=== PATIENT | male | born 1975 | race Caucasian/White ===

== ENCOUNTER 2016-11-05 12:15 | Observation (INO) ==
[2016-11-05 13:46] LABS: Basophils # 0.1 10*3/uL (0.0-0.2); Basophils % 0.5 % (0.0-0.8); Eosinophils # 0.2 10*3/uL (0.0-0.87); Eosinophils % 1.6 % (0.00-10.9); Hematocrit 51.1 VOL% (42.0-52.0); Hemoglobin 17.9 GM/DL (14.0-18.0); Immature Granulocytes % 0.4 %; Immature Granulocytes Absolute 0.04 #; Lymphocytes # 1.4 10*3/uL (1.4-4.0); Lymphocytes % 12.4 % (21.2-54.2); Mean Corpuscular Hemoglobin 31 PG (27-34); Mean Corpuscular Volume 88.4 FL (87-102); Mean Platelet Volume 10.2 FL (9.6-12.0); Monocytes % 9.4 % (1.7-12.7); Neutrophils # 8.3 10*3/uL (1.4-7.4); Neutrophils % 75.7 % (38.7-73.9); Platelet Count 317 T/CUMM (130-400); Red Blood Count 5.78 MC/CUMM (3.8-5.5)
[2016-11-05 14:10] LABS: Bilirubin,Total 0.7 MG/DL (0.2-1.0); Calcium 9.6 MG/DL (8.5-10.1); Osmolality,Calculated 276.5 MOS/KG (273-304); Potassium 4.1 MMOL/L (3.5-5.1); Total Protein 7.4 G/DL (6.4-8.3)
[2016-11-05] MEDS ORDERED: KETOROLAC 30 MG/1 ML VIAL ONE ×2 (14:40→14:50)
[2016-11-05] MEDS ORDERED: KETOROLAC 30 MG/1 ML VIAL IV STA (14:50)
--- NOTE | 2016-11-05 15:03 | CT Report ---
CT abdomen pelvis w con Indication: Generalized abdominal pain. Comparison: None. Technique: CT of the abdomen and pelvis was performed following administration of intravenous contrast. The CT examination was performed using one or more of the following dose reduction techniques: Automatic exposure control, adjustment of the mA and kV according to patient size, or iterative reconstruction techniques. Findings: A short segment of sigmoid colon demonstrates wall thickening and the presence of multiple diverticula as well as periserosal fat stranding and haziness. These findings are compatible with acute diverticulitis. A few of the lymph nodes within the mesial colon are borderline in size to minimally enlarged likely reactive. There is no evidence of perforation or abscess formation. Subcentimeter focus of low attenuation within the lateral cortex of the right kidney is compatible with small cyst or hemangioma. The size makes complete evaluation somewhat difficult and ultrasound would be useful for confirmation as well as exclusion of hypoattenuating solid mass. Otherwise, the imaged structures of the lower chest, liver, gallbladder, spleen, pancreas, adrenal glands, kidneys, aorta, inferior vena cava, stomach, bowel, and intrapelvic contents as well as bony structures soft tissues and musculature the body wall demonstrate no evidence of significant pathology. Impression: 1. Acute uncomplicated sigmoid diverticulitis is present as detailed. Follow-up is recommended to ensure resolution given the short segment of involvement to exclude inflammatory neoplasm. 11/05/2016 2:57 PM PROCEDURE INTERPRETED AT [facility] DEPARTMENT OF RADIOLOGY Final Report Signed by: Dr. Zay Mckinney
[2016-11-05] MEDS ORDERED: ONDANSETRON 4 MG/2 ML VIAL ONE (15:09)
[2016-11-05] MEDS ORDERED: MORPHINE 2 MG/1 ML SYRINGE ONE (15:10)
[2016-11-05] MEDS ORDERED: ACETAMINOPHEN 325 MG TABLET PO PRN (15:19)
--- NOTE | 2016-11-05 15:19 | Emergency Department Note ---
Tim Liriano Manpreet, am scribing for, and in the presence of, Nico Saenz MD 13:26. Dany Liriano Doug C, MD, personally performed the services described in this documentation, ascribed by Francois Dumont in my presence, and it is both accurate and complete 519 . Arrival - Arrival Chief Complaint: Abdominal / Flank Pain Stated Complaint: direuticulitis ED Nursing Triage Note: Pt c/o lower abd pain since . with some nausea. Denies vomiting or diarrhea. Mode of Arrival: Ambulatory Limitations: No Limitations Source: Patient - History of Present Illness HPI Narrative: Patient is a 41-year-old white male presents emergency room complaining increasing lower abdominal pain for the last 4-5 days. By states she has had some nausea with it but has not had any vomiting or diarrhea. By states she has felt hot but was not measured his temperature and he denies any shaking chills. Has not seen any blood in his stool or melena. He has had similar pain in the past when he had diverticulitis. Patient had some antibiotics that he started taking but that did not seem to help him that much. He denies any urinary symptoms and has not seen blood in his urine Onset (ago): day(s) Consistency: constant Severity: moderate Severity scale (1-10): 4 Allergies/Adverse Reactions: Allergies Allergy/AdvReac Type Severity Reaction Status Date / Time No Known Allergies Allergy Verified 07/06/15 11:46 Home Medications: Home Medications Medication Instructions Recorded Confirmed Type No Known Home Medications [No 11/05/16 11/05/16 History Known Home Medications] Review of System - Review of System 12 point system: reviewed and no additional remarkable complaints except as stated - Review of System Constitutional: Absent: chills, diaphoresis, fever Respiratory: Absent: cough, respiratory distress Cardiovascular: Absent: chest pain Gastrointestinal: Present: abdominal pain, nausea. Absent: vomiting, diarrhea, hematemesis, melena, hematochezia Genitourinary male: Absent: dysuria, frequency Musculoskeletal: Absent: back pain, neck pain Skin: Absent: rash, lesions Neurological: Absent: headache, weakness, numbness Psychiatric: Absent: anxiety, depression Hematological/Lymphatic: Absent: easy bleeding, easy bruising Medical,Surgical,& Family Hx - Medical History Gastrointestinal: History of: Diverticulitis/ Diverticulosis Musculoskeletal: No history of: Amputation - Surgical History Thoracic Surgeries: Patient denies;: Kidney (Renal Surgery), Lithotripsy, Nephrectomy, Organ Transplant Neurologic Surgeries: Patient denies: Neurologic Surgery HEENT Surgeries: Patient denies: Eye Surgery, Thyroid Surgery, Tonsilectomy & Adenoidectomy Abdominal Surgeries: Patient denies: Abdominal Surgery, Appendectomy, Cholecystectomy, Colonoscopy , Gastric Bypass Surgery, EGD, Hernia Repair Reproductive Surgeries: Patient denies;: Cystoscopy, Genitourinary Surgery, Prostate Surgery Orthopedic Surgeries: Patient denies;: Implanted Devices, Orthopedic Surgery, Spinal Surgery, Total Hip Replacement, Total Knee Replacement - Family History Family History: Reports;: Family Diabetes (FATHER), Family Heart Disease ( father underwent left heart catheterization and stenting at age 60.) Denies;: Family Cancer, Family Hypertension, Family Psychiatric Problems, Family Stroke - Social History Smoking Status: Former smoker Exam Vital Signs: Vital Signs Temperature 98.3 F 11/05/16 13:55 Pulse Rate 78 11/05/16 13:55 Respiratory Rate 18 11/05/16 13:55 Blood Pressure 155/104 11/05/16 13:55 O2 Sat by Pulse Oximetry 97 11/05/16 12:16 - General General appearance: alert, in no apparent distress - Head Head exam: Present: atraumatic, normocephalic, normal inspection - Eye Eye exam: Present: normal appearance, PERRL, EOMI - ENT ENT exam: Present: normal exam, normal oropharynx, mucous membranes moist - Neck Neck exam: Present: normal inspection, full ROM, trachea midline. Absent: tenderness - Chest Chest inspection: Present: normal inspection, symmetric chest wall rise. Absent : tenderness - Respiratory Respiratory exam: Present: normal lung sounds bilaterally. Absent: accessory muscle use, respiratory distress - Cardiovascular Cardiovascular exam: Present: regular rate, normal rhythm, normal heart sounds. Absent: murmur, rubs, gallop - Abdominal Exam Abdominal exam: Present: tenderness (Lower Abd tenderness), normal bowel sounds. Absent: soft, distention - Extremities Exam Extremities exam: Present: normal inspection, full ROM. Absent: tenderness - Back Exam Back exam: Present: normal inspection, full ROM. Absent: tenderness - Neurological Exam Neurological exam: Present: alert, oriented X3, CN II-XII intact, reflexes normal - Psychiatric Psychiatric exam: Present: normal affect, normal mood - Skin Skin exam: Present: warm, dry, intact, normal color. Absent: pallor Course Course Narrative: Patient's clinical presentation, laboratory and radiograph findings were discussed with Dr. Jerry Virk and patient will be admitted for further evaluation and treatment. Results - Labs CBC & BMP: 11/05/16 13:37 11/05/16 13:37 Lab Results: I have reviewed the patients labs Labs: Laboratory Tests 11/05/16 13:37 WBC 11.0 RBC 5.78 H Hgb 17.9 Hct 51.1 MCV 88.4 Neut % (Auto) 75.7 H Lymph % (Auto) 12.4 L Neut # (Auto) 8.3 H [place] # (Auto) 1.0 H Laboratory Tests 11/05/16 13:37 Sodium 139 Potassium 4.1 Chloride 104 Carbon Dioxide 28 Anion Gap 11.1 Creatinine 1.50 H - Diagnostic Findings Procedure: CT Abdomen and Pelvis: report reviewed by me (CT w/ IV Contrast: 1. Acute uncomplicated sigmoid diverticulitis is present as detalied. Follow-up is recommended to ensure resolution given the short segment of involvement to exclude inflammatory neoplasm.) Disposition Clinical Impression: Acute diverticulitis Case discussed with: patient, patient's family Disposition: Still a Patient Condition: Stable Time of Disposition: 15:19
[2016-11-05] MEDS: MORPHINE 2 MG/1 ML SYRINGE IV PRN ×2 (16:00→20:56)
[2016-11-05] MEDS: ONDANSETRON 4 MG/2 ML VIAL IV PRN (16:01)
[2016-11-05 16:30] LABS: Lactic Acid 0.9 MMOL/L (0.4-2.0)
[2016-11-05] MEDS: SODIUM CHLORIDE 0.9% 1,000 ML IV SCH (16:40)
[2016-11-05] MEDS: ENOXAPARIN 40 MG/0.4 ML SYRINGE SUBCUT SCH (16:45)
[2016-11-05] MEDS: LEVOFLOXACIN INJ 750 MG in PREMIX 1 EACH IV SCH (17:04)
[2016-11-05] MEDS: metroNIDAZOLE INJ 750 MG in PREMIX 1 EACH IV SCH (18:37)
[2016-11-05] MEDS: DOCUSATE SODIUM 100 MG CAPSULE PO SCH (20:56)
[2016-11-06] MEDS: metroNIDAZOLE INJ 750 MG in PREMIX 1 EACH IV SCH ×3 (02:56→19:47)
[2016-11-06] MEDS: SODIUM CHLORIDE 0.9% 1,000 ML IV SCH ×3 (02:56→23:33)
[2016-11-06 04:33] LABS: Basophils % 0.5 % (0.0-0.8); Eosinophils # 0.2 10*3/uL (0.0-0.87); Eosinophils % 2.3 % (0.00-10.9); Hematocrit 43.2 VOL% (42.0-52.0); Hemoglobin 14.8 GM/DL (14.0-18.0); Immature Granulocytes % 0.3 %; Immature Granulocytes Absolute 0.02 #; Lymphocytes # 1.3 10*3/uL (1.4-4.0); Lymphocytes % 19.4 % (21.2-54.2); Mean Corpuscular HGB Conc 34.3 GM/DL (32-36); Mean Corpuscular Hemoglobin 31 PG (27-34); Mean Corpuscular Volume 89.4 FL (87-102); Mean Platelet Volume 10.4 FL (9.6-12.0); Monocytes % 14.3 % (1.7-12.7); Neutrophils # 4.2 10*3/uL (1.4-7.4); Neutrophils % 63.2 % (38.7-73.9); Platelet Count 269 T/CUMM (130-400); Red Blood Count 4.83 MC/CUMM (3.8-5.5); Red Cell Distribution Width 12.9 % (9.3-17.3); White Blood Count 6.7 T/CUMM (4-12)
[2016-11-06] MEDS: MORPHINE 2 MG/1 ML SYRINGE IV PRN ×3 (08:24→19:53)
[2016-11-06] MEDS: ONDANSETRON 4 MG/2 ML VIAL IV PRN (08:25)
[2016-11-06] MEDS: PANTOPRAZOLE 40 MG TABLET PO SCH (08:25)
[2016-11-06] MEDS: DOCUSATE SODIUM 100 MG CAPSULE PO SCH ×2 (08:25→20:45)
--- NOTE | 2016-11-06 09:12 | Gastrointestinal Consult Note ---
Assessment and Plan - Time spent with patient Time spent with patient: Greater than 30 minutes (1) Acute diverticulitis Status: Acute Current Visit: Yes (2) Other specified counseling Status: Acute Current Visit: Yes History of Present Illness History of present illness: Mr. Harper is a 41 year old male Home Medications Medication Instructions Recorded Confirmed Type No Known Home Medications [No 11/05/16 11/05/16 History Known Home Medications] Allergies Allergy/AdvReac Type Severity Reaction Status Date / Time No Known Allergies Allergy Verified 11/05/16 16:30 Medical,Surgical,& Family Hx - Medical History Cardio: History of: Hypertension Gastrointestinal: History of: Diverticulitis/ Diverticulosis, GERD Musculoskeletal: No history of: Amputation - Surgical History Cardiac Surgeries: Sugical HX of: Cardiac Catheterization Thoracic Surgeries: Patient denies;: Kidney (Renal Surgery), Lithotripsy, Nephrectomy, Organ Transplant Neurologic Surgeries: Patient denies: Neurologic Surgery HEENT Surgeries: Patient denies: Eye Surgery, Thyroid Surgery, Tonsilectomy & Adenoidectomy Abdominal Surgeries: Patient denies: Abdominal Surgery, Appendectomy, Cholecystectomy, Colonoscopy , Gastric Bypass Surgery, EGD, Hernia Repair Reproductive Surgeries: Patient denies;: Cystoscopy, Genitourinary Surgery, Prostate Surgery Orthopedic Surgeries: Patient denies;: Implanted Devices, Orthopedic Surgery, Spinal Surgery, Total Hip Replacement, Total Knee Replacement - Family History Family History: Reports;: Family Diabetes (FATHER), Family Heart Disease ( father underwent left heart catheterization and stenting at age 60.) Denies;: Family Cancer, Family Hypertension, Family Psychiatric Problems, Family Stroke - Social History Smoking Status: Former smoker Frequency of Alcohol Use: None Type of Drug Use: None Exam - Constitutional Vitals: Period Temp Pulse Resp BP Sys/Zavala Pulse Ox Last 24 Hr 97.9 F-98.7 F 75-85 18-20 107-149/61-89 94-97 Results - Labs CBC & BMP: 11/06/16 04:01 11/05/16 13:37 Note Addendum: PLEASE NOTE -- automatic citation of patient information is unavoidable in this electronic note. I have made a reasonable effort to review the information cited , but it is not a part of my evaluation, impression, or recommendation unless specifically discussed in the dictated text that follows. As well, voice recognition software was used in the creation of this clinical note. Reasonable effort was made to identify and correct gross errors. Despite proofreading, errors in well puller head may be present, including nonsense verbiage at times. If you encounter such an error, please contact me at for discussion and correction. -- Kamari Chief complaint: abdominal pain History of present illness: This is a new patient, a 41-year-old male seen by consultation for evaluation of abdominal pain. The patient is admitted to the primary care service under the care of Dr. Nico Saenz with a primary diagnosis of diverticulitis. The patient was admitted last evening through the emergency department with primary complaint of abdominal pain. Evaluation at that time revealed radiologic evidence of sigmoid diverticulitis without complication. The patient was started on levofloxacin and Flagyl as well as crystalloid resuscitation and now reports feeling some better continue with abdominal discomfort. He reports this is the fourth time in four years that he has had too diverticulitis. He has not had colonoscopy in the past. Patient denies night sweats, rigors, headache, dizziness, neck pain, visual changes, redness of the eyes, dysphagia, odynophagia, difficulty chewing, chest pain, shortness of breath, weight loss, nausea, vomiting, regurgitation, hematemesis, diarrhea, hematochezia, melena, proctalgia, constipation, dysuria, skin changes, temperature regulation issues, flushing, easy bleeding/bruising, musculoskeletal pain, mental status change, numbness/weakness in the extremities , yellowing of the eyes/skin, cutaneous eruptions, allergies to food or drug, family history of gastrointestinal cancer and colon polyps, and other complaints in general. Review of systems: 12 point review of systems was negative except as documented above. Outpatient medications: none Inpatient medications: Tylenol, Colace, Lovenox, Levaquin, Flagyl, morphine, Zofran, Protonix, sodium chloride infusion Past Medical History: diverticulosis/diverticulitis Social history: former tobacco. Negative alcohol Family history: no gastrointestinal cancers Physical examination: Vital Signs: Current vital signs reviewed and documented above. General Appearance: well-appearing. Not acutely ill. Head: Normocephalic. Neck: Palpation of the neck revealed no abnormalities. Eyes: No scleral icterus. No scleral injection. No conjunctival pallor. Oral Cavity: Odor of breath was normal. No drooling was observed. Lips showed no abnormalities. Floor of the mouth showed no abnormalities. Pharynx: Oropharynx was normal. Lungs: Respiration rhythm and depth was normal. Cardiovascular: Heart rate and rhythm were normal. No murmurs were appreciated. Abdomen: abdomen was not distended. Abdominal palpation revealed no tenderness and no hepatosplenomegaly. Ascites was not discovered. Abdominal auscultation revealed positive bowel sounds. Musculoskeletal System: Musculoskeletal system was grossly normal. Neurological: level of consciousness was normal. Speech was normal. Skin: General appearance was normal. Color and pigmentation were normal. No skin lesions. Laboratory: white blood count 6.7, hemoglobin 14.8, hematocrit 43.2, platelets 269 Radiology: CT of the abdomen and pelvis, November 05, 2016 -- acute uncomplicated sigmoid diverticulitis; mesenteric lymphadenopathy; incidental, non- gastrointestinal, findings Impressions: 1. Sigmoid diverticulitis -- the patient has CT evidence of same. CT is reasonably sensitive and specific in this setting. The patient reports some improvement since admission. I agree with the current antibiotic selection. I would recommend a clear liquid diet until a clear trend of improvement is established. I recommend conversion to oral antibiotics once severe abdominal pain is improved. Patient can be discharged once homeostasis is achieved, pain is relieved, and the patient is tolerating a diet. He should have colonoscopy during convalescence to ensure no evidence of alternative pathology involving the sigmoid colon. You should also consider a surgical consultation for prophylactic segmental colectomy to prevent future episodes of diverticulitis. 2. Other specified counseling -- The patient was seen for greater than 30 minutes. The patient was counseled for greater than 50% of this time regarding differential diagnosis, likely diagnosis, diagnostic and therapeutic alternatives, risks/benefits/alternatives of medications and procedures, and plan of care generally. The patient expressed understanding and wishes to proceed. Recommendations: -- continue current antibiotic -- continue crystalloid resuscitation -- continued analgesia as indicated -- discharge once homeostasis and pain relief is well-established -- follow-up in the outpatient gastroenterology clinic for diagnostic colonoscopy to ensure no alternative pathology involving the sigmoid colon -- surgical consultation, outpatient, for consideration of prophylactic segmental colectomy -- thank you for this consultation. Dr. barajas will assume G.I. care for this patient tomorrow.
--- NOTE | 2016-11-06 09:29 | Family Practice History&Phys ---
History of Present Illness Chief complaint: Diverticulitis History of present illness: Mr. Harper is a 41 year old male Came in the hospital with a left lower quadrant pain. He was seen on an outpatient basis and basically failed outpatient therapy with antibiotics about 4 days ago. He is continued to have pain without vomiting or diarrhea. Has had diverticulitis before and feels this is what is. On denies any fever or chest pain shortness of breath leg swelling flank pain or other constitutional symptoms at this time. Patient is psychologically emotionally stable. We are currently giving him IV fluids as well as antibiotics and treating pain palliatively at present Home Medications Medication Instructions Recorded Confirmed Type No Known Home Medications [No 11/05/16 11/05/16 History Known Home Medications] Allergies Allergy/AdvReac Type Severity Reaction Status Date / Time No Known Allergies Allergy Verified 11/05/16 16:30 12 point system: reviewed and no additional remarkable complaints except as stated (H&P) - Constitutional Constitutional: Absent: anorexia - EENT Eyes: Absent: blurry vision Nose, mouth and throat: Absent: dysphagia - Cardiovascular Cardiovascular: Absent: chest pain at rest, lightheadedness - Respiratory Respiratory: Absent: cough, wheezing - Gastrointestinal Gastrointestinal: Present: abdominal pain. Absent: hematochezia - Genitourinary Genitourinary: Absent: dysuria, flank pain - Musculoskeletal Musculoskeletal: Absent: back pain - Neurological Neurological: Absent: confusion - Psychiatric Psychiatric: Absent: depression Medical,Surgical,& Family Hx - Medical History Cardio: History of: Hypertension Gastrointestinal: History of: Diverticulitis/ Diverticulosis, GERD Musculoskeletal: No history of: Amputation - Surgical History Cardiac Surgeries: Sugical HX of: Cardiac Catheterization Thoracic Surgeries: Patient denies;: Kidney (Renal Surgery), Lithotripsy, Nephrectomy, Organ Transplant Neurologic Surgeries: Patient denies: Neurologic Surgery HEENT Surgeries: Patient denies: Eye Surgery, Thyroid Surgery, Tonsilectomy & Adenoidectomy Abdominal Surgeries: Patient denies: Abdominal Surgery, Appendectomy, Cholecystectomy, Colonoscopy , Gastric Bypass Surgery, EGD, Hernia Repair Reproductive Surgeries: Patient denies;: Cystoscopy, Genitourinary Surgery, Prostate Surgery Orthopedic Surgeries: Patient denies;: Implanted Devices, Orthopedic Surgery, Spinal Surgery, Total Hip Replacement, Total Knee Replacement - Family History Family History: Reports;: Family Diabetes (FATHER), Family Heart Disease ( father underwent left heart catheterization and stenting at age 60.) Denies;: Family Cancer, Family Hypertension, Family Psychiatric Problems, Family Stroke - Social History Smoking Status: Former smoker Frequency of Alcohol Use: None Type of Drug Use: None Exam - Constitutional Vitals: Period Temp Pulse Resp BP Sys/Zavala Pulse Ox Last 24 Hr 97.9 F-98.7 F 75-85 18-20 107-149/61-89 94-97 Exam: Generally well-developed male alert and oriented and answers all questions appropriately HEENT reveals equal reactive light extraocular movements are intact neck is supple trachea midline Cardiovascular rate is regular no gallop or rub or murmur Lungs clear Abdomen soft nondistended. There is tenderness in the left lower quadrant with palpation. Did not do a Hemoccult stool Extremities no clubbing cyanosis or edema Results - Labs CBC & BMP: 11/06/16 04:01 11/05/16 13:37
[2016-11-06] MEDS: ENOXAPARIN 40 MG/0.4 ML SYRINGE SUBCUT SCH (15:08)
[2016-11-06] MEDS: LEVOFLOXACIN INJ 750 MG in PREMIX 1 EACH IV SCH (17:40)
[2016-11-07] MEDS: metroNIDAZOLE INJ 750 MG in PREMIX 1 EACH IV SCH (03:19)
--- NOTE | 2016-11-07 07:33 | Family Practice Progress Note ---
Family Practice - PN: Subj Interval history: Patient states he still having left lower quadrant pain. He did have any fever chills last night and states he did not have any diarrhea. Patient failed outpatient therapy and is presently on IV Flagyl and Levaquin. Is very significant area of diverticulitis on his CT. Exam (Progress Note) - Constitutional Vitals: Period Temp Pulse Resp BP Sys/Zavala Pulse Ox Last 24 Hr 97.9 F-98.3 F 62-79 18-20 106-130/62-91 92-99 Exam: Objectively well-developed white male no acute distress. He still complained of left lower quadrant tenderness. Has not had any fever or chills and his white blood count is diminished this morning. Results - Labs CBC & BMP: 11/06/16 04:01 11/05/16 13:37 Lab Results: I have reviewed the past 24 hour labs Assessment and Plan (1) Acute diverticulitis Status: Acute Assessment and plan: 11/07/2016: Told patient he will need colonoscopy when he finally improves. Also suggested to him that he might as will see the surgeon particularly if he has another episode of diverticulitis. He is agreeable to this. Current Visit: Yes
[2016-11-07] MEDS: ONDANSETRON 4 MG/2 ML VIAL IV PRN ×2 (08:31→18:23)
[2016-11-07] MEDS: SODIUM CHLORIDE 0.9% 1,000 ML IV SCH ×2 (08:39→18:37)
[2016-11-07] MEDS: DOCUSATE SODIUM 100 MG CAPSULE PO SCH ×2 (09:50→21:19)
[2016-11-07] MEDS: ENOXAPARIN 40 MG/0.4 ML SYRINGE SUBCUT SCH (09:50)
[2016-11-07] MEDS: PANTOPRAZOLE 40 MG TABLET PO SCH (09:50)
[2016-11-07] MEDS: METRONIDAZOLE IV SCH ×2 (11:45→19:30)
--- NOTE | 2016-11-07 12:08 | Gastrointestinal Progress Note ---
Assessment and Plan (1) Acute diverticulitis Status: Acute Assessment and plan: 11/07-left lower quadrant pain improved, afebrile, without leukocytosis. Mild nausea without vomiting. No prior endoscopy in the past. Continue IV antibiotics at this time. Plan an addendum to followed by Dr. Navarrete Current Visit: Yes Gastroenterology - PN: Subj Interval history: CC: Diverticulitis Patient is seen awake and alert lying in bed. States he is feeling some better today. He states that his left lower quadrant pain is improved and is more of a soreness at this time. He did have some complaints of nausea this morning without vomiting but this is now resolved. He is afebrile and without leukocytosis. He is currently being treated with Levaquin and Flagyl IV. CT scan results noted for sigmoid diverticulitis. Patient states that this is his third hospitalization for diverticulitis however he has never underwent any endoscopy before. He states that his first episode was approximate 5-6 years ago. He states that he has had more episodes however they did not require hospitalization and was treated outpatient with p.o. antibiotics. Abdomen is soft, mild tenderness to left lower quadrant. Denies any diarrhea. ROS: Denies shortness of breath or chest pain Exam (Progress Note) - Constitutional Vitals: Period Temp Pulse Resp BP Sys/Zavala Pulse Ox Last 24 Hr 97.9 F-98.1 F 62-79 18-20 106-130/62-75 92-96 General appearance: normal weight, no acute distress - Head Head exam: Present: normal inspection, normocephalic - Eye Eye exam: Present: other (Lids and conjunctive are unremarkable). Absent: scleral icterus - ENT ENT exam: Present: normal exam, normal oropharynx - Neck Neck exam: Present: normal inspection - Respiratory Respiratory exam: Present: clear to auscultation bilaterally. Absent: rales, rhonchi, wheezes - Cardiovascular Cardiovascular exam: Present: regular rate and rhythm. Absent: diastolic murmur , JVD, systolic murmur - GI/Abdominal GI/Abdominal exam: Present: normal bowel sounds, tenderness, soft. Absent: ascites, distended, mass, organomegaly - Extremities Exam Extremities exam: Present: normal inspection, full ROM - Back Exam Back exam: Present: normal inspection - Neurological Exam Neurological exam: Present: alert, oriented X3 - Psychiatric Psychiatric exam: Present: normal affect, normal mood - Skin Skin exam: Present: normal color, warm, dry Results - Labs CBC & BMP: 11/06/16 04:01 11/05/16 13:37 Lab Results: I have reviewed the past 24 hour labs
--- NOTE | 2016-11-07 12:51 | General Surgery Consult Note ---
Assessment and Plan - Time spent with patient Time spent with patient: Greater than 30 minutes (1) Acute diverticulitis Status: Acute Assessment and plan: 11/07/2016. Acute sigmoid diverticulitis. This is at least the fourth episode for this patient, 1 of which developed abscess, and what he describes as worsening symptomatically with each bout. Agree with IV antibiotics, and close observation. Would favor bowel rest versus very light diet. We will watch closely and follow-up with, oral contrasted CT should the patient fail to improve in a timely fashion. We discussed in detail the fact that he has now had extremely elevated risk for perforation which would likely end and open exploration, resection, and colostomy. He does want to pursue elective resection, should he recover from this current bout. We will discuss this again with the patient as he becomes further along in his recovery. Current Visit: Yes History of Present Illness Chief complaint: Diverticulitis History of present illness: Mr. Harper is a 41 year old male Home Medications Medication Instructions Recorded Confirmed Type No Known Home Medications [No 11/05/16 11/05/16 History Known Home Medications] Allergies Allergy/AdvReac Type Severity Reaction Status Date / Time No Known Allergies Allergy Verified 11/05/16 16:30 Medical,Surgical,& Family Hx - Medical History Cardio: History of: Hypertension Gastrointestinal: History of: Diverticulitis/ Diverticulosis, GERD Musculoskeletal: No history of: Amputation - Surgical History Cardiac Surgeries: Sugical HX of: Cardiac Catheterization Thoracic Surgeries: Patient denies;: Kidney (Renal Surgery), Lithotripsy, Nephrectomy, Organ Transplant Neurologic Surgeries: Patient denies: Neurologic Surgery HEENT Surgeries: Patient denies: Eye Surgery, Thyroid Surgery, Tonsilectomy & Adenoidectomy Abdominal Surgeries: Patient denies: Abdominal Surgery, Appendectomy, Cholecystectomy, Colonoscopy , Gastric Bypass Surgery, EGD, Hernia Repair Reproductive Surgeries: Patient denies;: Cystoscopy, Genitourinary Surgery, Prostate Surgery Orthopedic Surgeries: Patient denies;: Implanted Devices, Orthopedic Surgery, Spinal Surgery, Total Hip Replacement, Total Knee Replacement - Family History Family History: Reports;: Family Diabetes (FATHER), Family Heart Disease ( father underwent left heart catheterization and stenting at age 60.) Denies;: Family Cancer, Family Hypertension, Family Psychiatric Problems, Family Stroke - Social History Smoking Status: Former smoker Frequency of Alcohol Use: None Type of Drug Use: None Exam - Constitutional Vitals: Period Temp Pulse Resp BP Sys/Zavala Pulse Ox Last 24 Hr 97.9 F-98.1 F 62-79 18-20 106-130/62-75 92-96 General appearance: no acute distress, over weight - Head Head exam: Present: normocephalic - Eye Eye exam: Present: EOMI Pupils: Present: LAVERNE - ENT ENT exam: Present: normal exam, normal oropharynx Mouth exam: Present: normal voice, dry mucosa. Absent: oral lesion - Neck Neck exam: Present: trachea midline. Absent: lymphadenopathy - Respiratory Respiratory exam: Present: clear to auscultation bilaterally - Cardiovascular Cardiovascular exam: Present: RRR - GI/Abdominal GI/Abdominal exam: Present: hypoactive bowel sounds, tenderness (Left lower quadrant and left suprapubic area). Absent: distended, rebound - Anus/Rectum Anus/Rectum: other (Deferred) - Extremities Exam Extremities exam: Present: normal inspection - Back Exam Back exam: Absent: CVA tenderness (L), CVA tenderness (R) - Neurological Exam Neurological exam: Present: alert, oriented X3 Speech: Present: normal Results - Labs CBC & BMP: 11/06/16 04:01 11/05/16 13:37 Lab Results: I have reviewed the past 24 hour labs (CT results noted)
[2016-11-07] MEDS: ALPRAZolam 0.5 MG TABLET PO PRN (21:19)
[2016-11-07] MEDS: LEVOFLOXACIN INJ 750 MG in PREMIX 1 EACH IV SCH (21:19)
[2016-11-08] MEDS: METRONIDAZOLE IV SCH ×3 (02:36→20:25)
[2016-11-08] MEDS: SODIUM CHLORIDE 0.9% 1,000 ML IV SCH (06:17)
[2016-11-08] MEDS: metroNIDAZOLE INJ 750 MG in PREMIX 1 EACH IV SCH ×2 (06:29→12:22)
--- NOTE | 2016-11-08 07:32 | Family Practice Progress Note ---
Family Practice - PN: Subj Interval history: Patient states that he is actually feeling better this morning and his appetite is good. His pain is much improved. Has been seen by both GI and surgery. He understands the issues at hand. Exam (Progress Note) - Constitutional Vitals: Period Temp Pulse Resp BP Sys/Zavala Pulse Ox Last 24 Hr 96.9 F-98.2 F 59-70 18-20 121-155/63-87 92-98 Exam: Objectively well-developed white male no acute distress. Patient states his left lower quadrant tenderness is improved. Cardiovascular: Heart rates regular without murmurs Respiratory: Lungs clear to auscultation bilaterally Abdomen: Patient's left lower quadrant tenderness is certainly improved and he has no rebound or guarding. Results - Labs CBC & BMP: 11/06/16 04:01 11/05/16 13:37 Lab Results: I have reviewed the past 24 hour labs Assessment and Plan (1) Acute diverticulitis Status: Acute Assessment and plan: 11/07/2016: Told patient he will need colonoscopy when he finally improves. Also suggested to him that he might as will see the surgeon particularly if he has another episode of diverticulitis. He is agreeable to this. 11/08/2016: Patient is certainly improved from yesterday Current Visit: Yes
[2016-11-08] MEDS: DOCUSATE SODIUM 100 MG CAPSULE PO SCH ×2 (08:31→20:27)
[2016-11-08] MEDS: PANTOPRAZOLE 40 MG TABLET PO SCH (08:31)
[2016-11-08] MEDS: ENOXAPARIN 40 MG/0.4 ML SYRINGE SUBCUT SCH (08:31)
[2016-11-08] MEDS: ONDANSETRON 4 MG/2 ML VIAL IV PRN ×2 (08:31→20:26)
--- NOTE | 2016-11-08 09:33 | General Surgery Progress Note ---
Assessment and Plan - Time spent with patient Time spent with patient: Less than 30 minutes (1) Acute diverticulitis Status: Acute Assessment and plan: 11/08/2016 Patient in general is better white count is down to 6000. His tenderness seems to be more subjective than objective at this time. Certainly the patient has a long history of some recurring episodes of diverticulitis. Certainly at this time the treatment is continued antibiotics switching from IV to p.o. at some point. He probably should be on antibiotics for the next 3 weeks and then in about 6 weeks he probably should have a colonoscopy to see where he stands. Certainly with this being from what we understand his fourth episode we may want to consider a barium enema at some point and discussions about surgery to remove the involved segments. Current Visit: Yes Subjective Patient reports: Present: feels better, pain is less, tolerating a regular diet , no bowel movement, afebrile Exam - Constitutional Vitals: Period Temp Pulse Resp BP Sys/Zavala Pulse Ox Last 24 Hr 96.9 F-98.2 F 59-69 18-20 121-155/63-87 95-98 General appearance: no acute distress - Head Head exam: Present: normal inspection - Neck Neck exam: Present: normal inspection - Respiratory Respiratory exam: Present: clear to auscultation bilaterally - Cardiovascular Cardiovascular exam: Present: RRR - GI/Abdominal GI/Abdominal exam: Present: hypoactive bowel sounds, tenderness (Tenderness left lower quadrant that is more subjective than objective), soft. Absent: distended, mass - Extremities Exam Extremities exam: Present: normal inspection - Neurological Exam Neurological exam: Present: alert, oriented X3, CN II-XII intact - Skin Skin exam: Present: normal color, warm, dry Results - Labs CBC & BMP: 11/06/16 04:01 11/05/16 13:37 Lab Results: I have reviewed the past 24 hour labs
--- NOTE | 2016-11-08 10:23 | Gastrointestinal Progress Note ---
Assessment and Plan (1) Acute diverticulitis Status: Acute Assessment and plan: 11/08-pain improved with just mild soreness to palpation. No nausea or vomiting. Stool for occult blood pending. Plan an addendum to followed by Dr. Navarrete. 11/07-left lower quadrant pain improved, afebrile, without leukocytosis. Mild nausea without vomiting. No prior endoscopy in the past. Continue IV antibiotics at this time. Plan an addendum to followed by Dr. Navarrete Current Visit: Yes Gastroenterology - PN: Subj Interval history: CC: Acute diverticulitis Pt is awake and alert sitting up in chair. States he feels better today. He denies any abdominal pain, nausea or vomiting. He is afebrile. He is tolerating his diet well at this time. Denies any overt bleeding. Stool for occult blood is pending. Abdomen is soft, nontender. Dr. Kaur is consulted with patient and discussed surgical options with recurrence of his diverticulitis.. ROS: Denies shortness of breath or chest pain Exam (Progress Note) - Other Additional findings: General appearance: normal weight, no acute distress - Head Head exam: Present: normal inspection, normocephalic - Eye Eye exam: Present: other (Lids and conjunctive are unremarkable). Absent: scleral icterus - ENT ENT exam: Present: normal exam, normal oropharynx - Neck Neck exam: Present: normal inspection - Respiratory Respiratory exam: Present: clear to auscultation bilaterally. Absent: rales, rhonchi, wheezes - Cardiovascular Cardiovascular exam: Present: regular rate and rhythm. Absent: diastolic murmur , JVD, systolic murmur - GI/Abdominal GI/Abdominal exam: Present: normal bowel sounds, tenderness, soft. Absent: ascites, distended, mass, organomegaly - Extremities Exam Extremities exam: Present: normal inspection, full ROM - Back Exam Back exam: Present: normal inspection - Neurological Exam Neurological exam: Present: alert, oriented X3 - Psychiatric Psychiatric exam: Present: normal affect, normal mood - Skin Skin exam: Present: normal color, warm, dry Results - Labs CBC & BMP: 11/06/16 04:01 11/05/16 13:37 Lab Results: I have reviewed the past 24 hour labs
[2016-11-08] MEDS: metroNIDAZOLE 500 MG TABLET PO SCH (20:27)
[2016-11-08] MEDS: ALPRAZolam 0.5 MG TABLET PO PRN (20:27)
[2016-11-08] MEDS ORDERED: LEVOFLOXACIN 500 MG TABLET PO SCH (21:00)
[2016-11-09 06:27] LABS: Basophils # 0.1 10*3/uL (0.0-0.2); Eosinophils # 0.2 10*3/uL (0.0-0.87); Hematocrit 45.2 VOL% (42.0-52.0); Hemoglobin 15.8 GM/DL (14.0-18.0); Immature Granulocytes % 0.4 %; Immature Granulocytes Absolute 0.02 #; Lymphocytes # 1.3 10*3/uL (1.4-4.0); Lymphocytes % 25.5 % (21.2-54.2); Mean Corpuscular Hemoglobin 31 PG (27-34); Mean Corpuscular Volume 87.6 FL (87-102); Mean Platelet Volume 10.4 FL (9.6-12.0); Monocytes # 0.6 10*3/uL (0.11-0.8); Monocytes % 12.6 % (1.7-12.7); Neutrophils # 2.8 10*3/uL (1.4-7.4); Neutrophils % 56.5 % (38.7-73.9); Platelet Count 316 T/CUMM (130-400); Red Blood Count 5.16 MC/CUMM (3.8-5.5); Red Cell Distribution Width 12.8 % (9.3-17.3); White Blood Count 4.9 T/CUMM (4-12)
[2016-11-09 06:52] LABS: Calcium 8.7 MG/DL (8.5-10.1); Osmolality,Calculated 284.1 MOS/KG (273-304); Potassium 4.5 MMOL/L (3.5-5.1)
--- NOTE | 2016-11-09 08:08 | Discharge Summary ---
Hospital Course - Hospital Course Hospital Course: Patient is a 41-year-old white male admitted to the emergency room with severe abdominal pain. He was found to have acute diverticulitis. Patient was admitted and IV antibiotics were begun this showed slow improvement. He was seen in consultation by surgery and gastroenterology. He will be scheduled to have a colonoscopy in 4-6 weeks. Surgery was recommended to the patient but he declines at this time. I will see him back in the office in 2 weeks time and schedule he c-scope during that visit Diagnosis - Discharge Diagnosis (1) Acute diverticulitis Status: Acute Discharge Plan - Discharge Data Disposition: Disch To Home/Self Care Condition at Discharge: Stable Discharge Diet: advance to your usual diet Activity: resume usual activities as tolerated Hygiene: no restrictions Weight Bearing at Discharge: full weight bearing Driving: no restrictions Contact your physician if you experience:: fever over 101 - Discharge Medications New metroNIDAZOLE TAB [Flagyl Cap/Tab] 500 mg PO TID #30 tablet Acetaminophen Tab [Tylenol Tab] 650 mg PO Q6H PRN #0 tablet PRN Reason: Fever > 100.4 Or Headache levoFLOXacin [Levaquin Liquid] 750 mg PO DAILY #7 ml - Follow Up or Referral Follow Up: Nico Saenz MD [Emergency Provider] - 2 Weeks - Forms/Instructions Exam - Constitutional Vitals: Period Temp Pulse Resp BP Sys/Zavala Pulse Ox Last 24 Hr 97.2 F-98.2 F 57-69 18-20 99-130/61-87 92-99 Exam: Objectively well-developed white male no acute distress. Patient states his left lower quadrant tenderness is improved. Cardiovascular: Heart rates regular without murmurs Respiratory: Lungs clear to auscultation bilaterally Abdomen: Patient's left lower quadrant tenderness is certainly improved and he has no rebound or guarding. Discharge Results Labs on day of discharge: Labs from last 24 hours 11/09/16 11/09/16 06:02 06:02 WBC 4.9 RBC 5.16 Hgb 15.8 Hct 45.2 MCV 87.6 MCH 31 MCHC 35.0 RDW 12.8 Plt Count 316 MPV 10.4 Neut % (Auto) 56.5 Lymph % (Auto) 25.5 [place] % (Auto) 12.6 Eos % (Auto) 4.0 Baso % (Auto) 1.0 H Neut # (Auto) 2.8 Lymph # (Auto) 1.3 L [place] # (Auto) 0.6 Eos # (Auto) 0.2 Baso # (Auto) 0.1 Immature Gran % 0.4 Nucleated RBC % 0.0 Immature Gran # 0.02 Nucleated RBCs # 0.00 Sodium 142 Potassium 4.5 Chloride 107 Carbon Dioxide 28 Anion Gap 11.5 BUN 17 Creatinine 1.40 H GFR Calculation 83 BUN/Creatinine Ratio 12.00 Glucose 101 Calculated Osmolality 284.1 Calcium 8.7 DS: Provider Date of admission: 11/08/16 09:40 Primary care physician: . No PCP Attending physician on admission: Nico Saenz MD Discharging clinician: Nico Saenz MD Expected date of discharge: 11/09/16
--- NOTE | 2016-11-09 09:28 | General Surgery Progress Note ---
Assessment and Plan - Time spent with patient Time spent with patient: Less than 30 minutes (1) Acute diverticulitis Status: Acute Assessment and plan: 11/08/2016 Patient in general is better white count is down to 6000. His tenderness seems to be more subjective than objective at this time. Certainly the patient has a long history of some recurring episodes of diverticulitis. Certainly at this time the treatment is continued antibiotics switching from IV to p.o. at some point. He probably should be on antibiotics for the next 3 weeks and then in about 6 weeks he probably should have a colonoscopy to see where he stands. Certainly with this being from what we understand his fourth episode we may want to consider a barium enema at some point and discussions about surgery to remove the involved segments. 11/09/2016. Patient is better less tenderness in the left lower quadrant of the abdomen. He is on antibiotics and being discharged today for oral antibiotics. Appears that he may be scheduled for scoping's in a couple weeks. We will be happy to see him again in a month if his continues to do well and begin to sort out what other treatment may be needed on this situation Current Visit: Yes Subjective Patient reports: Present: no new complaints, pain is less, tolerating a regular diet, bowel movement, afebrile Exam - Constitutional Vitals: Period Temp Pulse Resp BP Sys/Zavala Pulse Ox Last 24 Hr 97.2 F-98.2 F 57-69 18-20 99-130/61-87 92-99 General appearance: no acute distress - Head Head exam: Present: normal inspection - Neck Neck exam: Present: normal inspection - Respiratory Respiratory exam: Present: clear to auscultation bilaterally - Cardiovascular Cardiovascular exam: Present: RRR - GI/Abdominal GI/Abdominal exam: Present: hypoactive bowel sounds, tenderness (Much improved with a little guarding), soft - Extremities Exam Extremities exam: Present: normal inspection - Neurological Exam Neurological exam: Present: alert, oriented X3, CN II-XII intact - Skin Skin exam: Present: normal color, warm, dry Results - Labs CBC & BMP: 11/09/16 06:02 11/09/16 06:02 Lab Results: I have reviewed the past 24 hour labs Specialty Discharge - Follow Up or Referrals Follow up with: Nico Saenz MD [Emergency Provider] - 11/23/16 1:30 pm Rene Navarrete MD [Physician] - (Make f/u appointment for coloncscope in 8 weeks. ) Papito Kaur MD [Physician] - 1 Month
[2016-11-09] MEDS: DOCUSATE SODIUM 100 MG CAPSULE PO SCH (09:31)
[2016-11-09] MEDS: PANTOPRAZOLE 40 MG TABLET PO SCH (09:32)
[2016-11-09] MEDS: metroNIDAZOLE 500 MG TABLET PO SCH (09:32)
[2016-11-09] MEDS: ENOXAPARIN 40 MG/0.4 ML SYRINGE SUBCUT SCH (09:33)
[2016-11-09 09:51] VITALS: BP 128/78
== END 2016-11-09 11:19 | disposition home or self-care (01) ==
LOC: N.2E 12:15 → N.ED 12:15 → N.EDINP 12:15 → N.2E 15:54
PROVIDERS: ADMIT Family Medicine; ATTEND Family Medicine

== ENCOUNTER 2020-04-02 15:10 | Inpatient (IN) ==
[2020-04-02] MEDS ORDERED: SODIUM CHLORIDE 0.9% 1,000 ML IV STA (16:09)
[2020-04-02] MEDS ORDERED: ONDANSETRON 4 MG/2 ML VIAL IV STA (16:37)
[2020-04-02] MEDS ORDERED: LORazepam 2 MG/1 ML VIAL IV STA (16:51)
[2020-04-02 17:04] LABS: Basophils % 0.2 % (0.0-0.8); Hematocrit 51.1 VOL% (42.0-52.0); Hemoglobin 17.2 GM/DL (14.0-18.0); Immature Granulocytes % 0.7 %; Immature Granulocytes Absolute 0.03 #; Lymphocytes # 0.7 10*3/uL (1.4-4.0); Mean Corpuscular HGB Conc 33.7 GM/DL (32-36); Mean Corpuscular Volume 90.4 FL (87-102); Monocytes % 5.6 % (1.7-12.7); Neutrophils % 76.5 % (38.7-73.9); Platelet Count 239 T/CUMM (130-400); Red Blood Count 5.65 MC/CUMM (3.8-5.5); Red Cell Distribution Width 13.1 % (9.3-17.3); White Blood Count 4.3 T/CUMM (4-12)
[2020-04-02 17:21] LABS: Albumin 3.3 G/DL (3.4-5.0); Bilirubin,Total 0.5 MG/DL (0.2-1.0); Osmolality,Calculated 269.1 MOS/KG (273-304); Total Protein 7.9 G/DL (6.4-8.3)
[2020-04-02 17:28] LABS: Ferritin 1040.7 ng/ml (26-388)
[2020-04-02 18:16] LABS: Bilirubin,Urine Negative (Negative); Blood, Urine Small mg/dL (Negative); Glucose,Urine (UA) Negative (Negative); Hyaline Casts,Urine 1 /LPF (0-3); Ketones,Urine Negative (Negative); Mucus,Urine Occasional /LPF (Occasional); Nitrite,Urine Negative (Negative); Protein,Urine 30 MG/DL; RBC,Urine 1 /HPF (0-4); Squamous Epithelial Cell,Urine Occasional /HPF (0-10); Urine Appearance CLEAR (Clear); Urine Color Yellow (Yellow); Urine Specific Gravity 1.027 (1.001-1.035); WBC,Urine 5 /HPF (0-6)
[2020-04-02] MEDS ORDERED: cefTRIAXone 1,000 MG in SODIUM CHLORIDE 0.9% 100 ML IV STA (18:33)
[2020-04-02] MEDS ORDERED: DEXAMETHASONE 4 MG/1 ML VIAL IV STA (18:33)
[2020-04-02] MEDS ORDERED: AZITHROMYCIN INJ 500 MG in SODIUM CHLORIDE 0.9% 250 ML IV STA (18:33)
[2020-04-02] MEDS ORDERED: cefTRIAXone 1,000 MG VIAL ONE (18:47)
[2020-04-02] MEDS ORDERED: ONDANSETRON 4 MG/2 ML VIAL IV PRN (19:06)
[2020-04-02] MEDS ORDERED: BENZONATATE 100 MG CAPSULE PO PRN (19:06)
[2020-04-02] MEDS: DOCUSATE SODIUM 100 MG CAPSULE PO SCH (20:30)
[2020-04-02] MEDS: ACETAMINOPHEN 325 MG TABLET PO PRN (21:31)
[2020-04-02] MEDS: ENOXAPARIN 40 MG/0.4 ML SYRINGE SUBCUT SCH (21:31)
[2020-04-02] MEDS: SODIUM CHLORIDE 0.9% 1,000 ML IV SCH (21:37)
[2020-04-02] MEDS: AZITHROMYCIN INJ 500 MG in SODIUM CHLORIDE 0.9% 250 ML IV STA ×2 (21:38→23:12)
[2020-04-03 05:54] LABS: Hematocrit 47.1 VOL% (42.0-52.0); Hemoglobin 15.6 GM/DL (14.0-18.0); Immature Granulocytes % 0.9 %; Immature Granulocytes Absolute 0.02 #; Lymphocytes # 0.6 10*3/uL (1.4-4.0); Lymphocytes % 24.3 % (21.2-54.2); Mean Corpuscular HGB Conc 33.1 GM/DL (32-36); Mean Corpuscular Volume 90.9 FL (87-102); Monocytes % 7.8 % (1.7-12.7); Platelet Count 203 T/CUMM (130-400); Red Blood Count 5.18 MC/CUMM (3.8-5.5); White Blood Count 2.3 T/CUMM (4-12)
[2020-04-03 06:12] LABS: Albumin 2.8 G/DL (3.4-5.0); Calcium 8.4 MG/DL (8.5-10.1); Osmolality,Calculated 276.8 MOS/KG (273-304); Total Protein 6.9 G/DL (6.4-8.3)
[2020-04-03 06:32] LABS: Platelet Estimate Normal
[2020-04-03] MEDS: CETIRIZINE 10 MG TABLET PO SCH (08:31)
[2020-04-03] MEDS: DOCUSATE SODIUM 100 MG CAPSULE PO SCH ×2 (08:31→20:29)
[2020-04-03] MEDS: DEXAMETHASONE 4 MG/1 ML VIAL IV SCH (10:19)
[2020-04-03] MEDS: PANTOPRAZOLE 40 MG TABLET PO SCH (10:19)
[2020-04-03] MEDS: ALPRAZolam 0.5 MG TABLET PO PRN ×2 (11:11→20:28)
[2020-04-03] MEDS: SODIUM CHLORIDE 0.9% 1,000 ML IV SCH ×4 (12:53→21:10)
[2020-04-03] MEDS: ACETAMINOPHEN 325 MG TABLET PO PRN ×2 (13:20→20:29)
[2020-04-03] MEDS: cefTRIAXone 1,000 MG in SYRINGE 1 EACH IV SCH (17:12)
[2020-04-03] MEDS: AZITHROMYCIN INJ 500 MG in SODIUM CHLORIDE 0.9% 250 ML IV SCH (17:12)
[2020-04-03] MEDS ORDERED: AZITHROMYCIN INJ 500 MG in SODIUM CHLORIDE 0.9% 250 ML IV SCH (19:00)
[2020-04-03] MEDS: ENOXAPARIN 40 MG/0.4 ML SYRINGE SUBCUT SCH (20:27)
[2020-04-03] MEDS: ALPRAZolam 0.5 MG TABLET PO SCH (20:29)
[2020-04-04] MEDS: SODIUM CHLORIDE 0.9% 1,000 ML IV SCH ×3 (06:06→20:32)
[2020-04-04 06:11] LABS: Basophils % 0.2 % (0.0-0.8); Hematocrit 44.4 VOL% (42.0-52.0); Hemoglobin 15.3 GM/DL (14.0-18.0); Immature Granulocytes % 1.1 %; Immature Granulocytes Absolute 0.07 #; Lymphocytes % 14.6 % (21.2-54.2); Mean Corpuscular HGB Conc 34.5 GM/DL (32-36); Mean Corpuscular Volume 89.5 FL (87-102); Mean Platelet Volume 10.3 FL (9.6-12.0); Monocytes % 3.9 % (1.7-12.7); Neutrophils % 80.2 % (38.7-73.9); Platelet Count 268 T/CUMM (130-400); Red Blood Count 4.96 MC/CUMM (3.8-5.5); Red Cell Distribution Width 12.8 % (9.3-17.3); White Blood Count 6.6 T/CUMM (4-12)
[2020-04-04 07:03] LABS: Calcium 8.1 MG/DL (8.5-10.1); Osmolality,Calculated 278.4 MOS/KG (273-304)
[2020-04-04] MEDS: DEXAMETHASONE 4 MG/1 ML VIAL IV SCH (08:14)
[2020-04-04] MEDS: PANTOPRAZOLE 40 MG TABLET PO SCH (08:14)
[2020-04-04] MEDS: DOCUSATE SODIUM 100 MG CAPSULE PO SCH ×2 (08:14→20:32)
[2020-04-04] MEDS: CETIRIZINE 10 MG TABLET PO SCH (08:14)
[2020-04-04] MEDS: cefTRIAXone 1,000 MG in SYRINGE 1 EACH IV SCH (17:15)
[2020-04-04] MEDS: AZITHROMYCIN INJ 500 MG in SODIUM CHLORIDE 0.9% 250 ML IV SCH (17:16)
[2020-04-04] MEDS: ACETAMINOPHEN 325 MG TABLET PO PRN (17:25)
[2020-04-04] MEDS: ENOXAPARIN 40 MG/0.4 ML SYRINGE SUBCUT SCH (20:31)
[2020-04-04] MEDS: ALPRAZolam 0.5 MG TABLET PO SCH (20:32)
[2020-04-04] MEDS: ALPRAZolam 0.5 MG TABLET PO PRN (20:32)
[2020-04-05] MEDS: SODIUM CHLORIDE 0.9% 1,000 ML IV SCH (04:18)
[2020-04-05 05:07] LABS: Basophils % 0.1 % (0.0-0.8); Hematocrit 41.9 VOL% (42.0-52.0); Hemoglobin 14.3 GM/DL (14.0-18.0); Immature Granulocytes % 0.8 %; Immature Granulocytes Absolute 0.06 #; Lymphocytes # 1.2 10*3/uL (1.4-4.0); Lymphocytes % 16.5 % (21.2-54.2); Mean Corpuscular HGB Conc 34.1 GM/DL (32-36); Mean Corpuscular Volume 89.3 FL (87-102); Monocytes % 3.2 % (1.7-12.7); Neutrophils % 79.4 % (38.7-73.9); Platelet Count 277 T/CUMM (130-400); Red Blood Count 4.69 MC/CUMM (3.8-5.5); Red Cell Distribution Width 12.9 % (9.3-17.3); White Blood Count 7.1 T/CUMM (4-12)
[2020-04-05 05:28] LABS: Albumin 2.5 G/DL (3.4-5.0); Bilirubin,Total 0.6 MG/DL (0.2-1.0); Calcium 8.1 MG/DL (8.5-10.1); Ferritin 626.5 ng/ml (26-388); Osmolality,Calculated 278.4 MOS/KG (273-304); Total Protein 6.1 G/DL (6.4-8.3)
[2020-04-05] MEDS: DOCUSATE SODIUM 100 MG CAPSULE PO SCH (08:08)
[2020-04-05] MEDS: CETIRIZINE 10 MG TABLET PO SCH (08:08)
[2020-04-05] MEDS: PANTOPRAZOLE 40 MG TABLET PO SCH (08:08)
[2020-04-05] MEDS: DEXAMETHASONE 4 MG/1 ML VIAL IV SCH (08:08)
[2020-04-05] MEDS ORDERED: carisoprodoL 350 MG TABLET PO PRN (08:47)
[2020-04-05] MEDS: ACETAMINOPHEN 325 MG TABLET PO PRN (08:52)
[2020-04-05] MEDS ORDERED: BUTALBITAL/ACETAMIN/CAFFEINE 50-325-40 MG TABLET PO ONE (09:24)
[2020-04-05 11:20] VITALS: BP 127/76
== END 2020-04-05 11:59 | disposition home or self-care (01) | DRG 177 ==
LOC: N.ED 15:10 → N.EDINP 18:17 → N.2E 20:01
PROVIDERS: ADMIT Family Medicine; ATTEND Family Medicine